=== PATIENT | female | born 1995 | race Two or more races ===

== ENCOUNTER 2021-07-26 22:09 | Emergency (ER) | payer SELFPAY ==
[~2021-07-26] VITALS: Ht 157.5 cm; Wt 56.0 kg
[2021-07-26] MEDS ORDERED: ONDANSETRON ODT 4 MG TAB.RAPDIS. PO ONE (23:45)
[2021-07-26 23:46] LABS: BILIRUBIN,URINE SMALL (NEG); CLARITY,URINE HAZY; COLOR,URINE YELLOW; NITRITE,URINE NEGATIVE (NEG); PH,URINE 5.5 (<5.0-8.0); PROTEIN,URINE 30 mg/dL (NEG-TRACE); UROBILINOGEN,URINE 0.2 mg/dL (0.2 mg/dL)
[2021-07-26 23:47] LABS: BACTERIA,URINE MODERATE /HPF (0-FEW); RBC,URINE OCC /HPF (0-2)
[2021-07-27 00:32] LABS: BASO % 0 % (0-3); EOS % 0 % (0-3); HEMATOCRIT 39.4 % (36.0-47.0); HEMOGLOBIN 13.7 g/dL (12.0-15.5); LYMPH # 0.9 x10^3/uL (1.0-4.8); LYMPH % 11 % (24-48); MEAN CORPUSCULAR HEMOGLOBIN 31 pg (25-35); MEAN CORPUSCULAR HGB CONC 35 g/dL (31-37); MEAN CORPUSCULAR VOLUME 90 fL (79-100); MONO # 0.6 x10^3/uL (0.0-1.1); MONO % 7 % (0-9); NEUT # 7.1 x10^3/uL (1.8-7.7); NEUT % 82 % (31-73); PLATELET COUNT 300 x10^3/uL (140-400); RED BLOOD COUNT 4.37 x10^6/uL (3.50-5.40); RED CELL DISTRIBUTION WIDTH 13.8 % (11.5-14.5); WHITE BLOOD COUNT 8.6 x10^3/uL (4.0-11.0)
[2021-07-27 00:39] LABS: CALCIUM 9.6 mg/dL (8.5-10.1); CREATININE 0.7 mg/dL (0.6-1.0); POTASSIUM 3.8 mmol/L (3.5-5.1)
[2021-07-27 00:46] LABS: ALBUMIN 3.6 g/dL (3.4-5.0); ALBUMIN/GLOBULIN RATIO 0.7 (1.0-1.7); TOTAL BILIRUBIN 0.5 mg/dL (0.2-1.0); TOTAL PROTEIN 8.7 g/dL (6.4-8.2)
[2021-07-27] MEDS ORDERED: ONDANSETRON ODT 4 MG TAB.RAPDIS. PO ONE (01:00)
[2021-07-27] MEDS ORDERED: ONDA4TAB12 PO (01:23)
[2021-07-27 01:25] VITALS: BP 109/68
--- NOTE | 2021-07-27 01:25 | PHYS DOC ---
Past Medical History Past Surgical History: No Surgical History Smoking Status: Never Smoker Alcohol Use: None General Adult EDM: Chief Complaint: NAUSEA/VOMITING/DIARRHEA HPI: HPI: 26 yo at approximately 3 months and 2 weeks based on last menstrual period, presents the ED with her biological mother, (patient consents to his/her/their knowledge and involvement in pts' medical care), complains of multiple episodes of nausea, nonbloody nonbilious vomiting and upper abdominal pain for the past day. Follows at [facility] (Dr. Leigh) and was prescribed doxylamine 1 week ago. Reports normal ultrasound approximately 3 we eks ago. No associated vaginal bleeding, lower abdominal pain or cramping, dysuria, hematuria, flank pain, fever, nausea or vomiting. Patient does not drink alcohol or do any drugs. Patient is Malay-speaking and requests her mother to translate. Review of Systems: Review of Systems: Constitutional: Denies fever or chills. [] Eyes: Denies change in visual acuity. [] HENT: Denies nasal congestion or sore throat. [] Respiratory: Denies cough or shortness of breath. [] Cardiovascular: Denies chest pain or edema. [] GI: Denies bloody stools or diarrhea. [] : Denies dysuria or vaginal bleeding Musculoskeletal: Denies back pain or joint pain. [] Integument: Denies rash or diaphoresis Neurologic: Denies headache, focal weakness or sensory changes. [] Psychiatric: Denies depression or anxiety. [] Heart Score: C/O Chest Pain: No Risk Factors: Risk Factors: DM, Current or recent (<one month) smoker, HTN, HLP, family history of CAD, obesity. Risk Scores: Score 0 - 3: 2.5% MACE over next 6 weeks - Discharge Home Score 4 - 6: 20.3% MACE over next 6 weeks - Admit for Clinical Observation Score 7 - 10: 72.7% MACE over next 6 weeks - Early Invasive Strategies Current Medications: Current Medications Medications (Trade) Dose Ordered Sig/Gonzalez Start Time Stop Time Status Last Admin Dose Admin Ondansetron HCl (Zofran Odt) 4 mg 1X ONCE 07/27/21 01:00 07/27/21 01:01 DC 07/27/21 00:30 4 MG Allergies: Allergies: Allergies Coded Allergies Type Severity Reaction Last Updated Verified No Known Drug Allergies 07/26/21 No Physical Exam: PE: Constitutional: Well developed, well nourished, no acute distress, non-toxic appearance. HENT: Normocephalic, atraumatic, Eyes: EOMI, conjunctiva normal, no discharge. Neck: Normal range of motion, supple, Cardiovascular: S1/2 present, regular rhythm Lungs & Thorax: Speaking in full sentences, bilateral equal chest rise, no tachypnea or increased work of breathing Abdomen: soft, no reproducible tenderness, gravid, heart rate between 166 and 180 per RN Skin: Warm, dry, no erythema, no rash. [] Back: No tenderness, no CVA tenderness. [] Extremities: No tenderness, no cyanosis, no lower extremity edema Neurologic: Alert and oriented X 3, normal motor function, normal sensory function, no focal deficits noted. [] Psychologic: Affect normal, judgement normal, mood normal. [] Current Patient Data: Labs: Laboratory Tests Test 07/26/21 23:05 07/26/21 23:12 07/27/21 00:25 Urine Collection Type Unknown Urine Color Yellow Urine Clarity Hazy Urine pH 5.5 (<5.0-8.0) Urine Specific [place] >=1.030 (1.000-1.030) Urine Protein 30 mg/dL (NEG-TRACE) Urine Glucose (UA) Negative mg/dL (NEG) Urine Ketones (Stick) >160 mg/dL (NEG) Urine Blood Negative (NEG) Urine Nitrite Negative (NEG) Urine Bilirubin Small (NEG) Urine Urobilinogen Dipstick 0.2 mg/dL (0.2 mg/dL) Urine Leukocyte Esterase Negative (NEG) Urine RBC Occ /HPF (0-2) Urine WBC 1-4 /HPF (0-4) Urine Squamous Epithelial Cells Many /LPF Urine Bacteria Moderate /HPF (0-FEW) Urine Mucus Marked /LPF POC Urine HCG, Qualitative Hcg positive (Negative) White Blood Count 8.6 x10^3/uL (4.0-11.0) Red Blood Count 4.37 x10^6/uL (3.50-5.40) Hemoglobin 13.7 g/dL (12.0-15.5) Hematocrit 39.4 % (36.0-47.0) Mean Corpuscular Volume 90 fL (79-100) Mean Corpuscular Hemoglobin 31 pg (25-35) Mean Corpuscular Hemoglobin Concent 35 g/dL (31-37) Red Cell Distribution Width 13.8 % (11.5-14.5) Platelet Count 300 x10^3/uL (140-400) Neutrophils (%) (Auto) 82 % (31-73) H Lymphocytes (%) (Auto) 11 % (24-48) L Monocytes (%) (Auto) 7 % (0-9) Eosinophils (%) (Auto) 0 % (0-3) Basophils (%) (Auto) 0 % (0-3) Neutrophils # (Auto) 7.1 x10^3/uL (1.8-7.7) Lymphocytes # (Auto) 0.9 x10^3/uL (1.0-4.8) L Monocytes # (Auto) 0.6 x10^3/uL (0.0-1.1) Eosinophils # (Auto) 0.0 x10^3/uL (0.0-0.7) Basophils # (Auto) 0.0 x10^3/uL (0.0-0.2) Maternal Serum HCG Beta Subunit 24135 mIU/mL (0-5) H Sodium Level 137 mmol/L (136-145) Potassium Level 3.8 mmol/L (3.5-5.1) Chloride Level 100 mmol/L (98-107) Carbon Dioxide Level 24 mmol/L (21-32) Anion Gap 13 (6-14) Blood Urea Nitrogen 6 mg/dL (7-20) L Creatinine 0.7 mg/dL (0.6-1.0) Estimated GFR (Cockcroft-Gault) 102.0 BUN/Creatinine Ratio 9 (6-20) Glucose Level 87 mg/dL (70-99) Calcium Level 9.6 mg/dL (8.5-10.1) Total Bilirubin 0.5 mg/dL (0.2-1.0) Aspartate Amino Transferase (AST) 17 U/L (15-37) Alanine Aminotransferase (ALT) 29 U/L (14-59) Alkaline Phosphatase 77 U/L (46-116) Total Protein 8.7 g/dL (6.4-8.2) H Albumin 3.6 g/dL (3.4-5.0) Albumin/Globulin Ratio 0.7 (1.0-1.7) L Laboratory Tests 07/27/21 00:25 Laboratory Tests 07/27/21 00:25 Vital Signs: Vital Signs Date Time Temp Pulse Resp B/P (MAP) Pulse Ox O2 Delivery O2 Flow Rate FiO2 07/27/21 00:55 80 105/65 (78) 98 Room Air 07/26/21 23:11 98.1 20 98.1 EKG: EKG: [] Radiology/Procedures: Radiology/Procedures: [] Course & Med Decision Making: Course & Med Decision Making Pertinent Labs and Imaging studies reviewed. (See chart for details) Concern for nausea and vomiting in , no reproducible abdominal pain on exam. Patient denies diarrhea, fever, chills, vaginal bleeding or urinary complaints. Patient tolerating oral fluids on reevaluation after antiemetics. Urinalysis contaminated w/ketonuria (negative for nitrates and leukocyte esterase). Labs unremarkable with no electrolyte abnormalities. Patient hemodynamically stable and well-appearing. No further abdominal pain on re- evaluation (later clarified it's only present when vomiting). Will prescribe Zofran ODT. Will discharge home with strict ED return precautions were given for abdominal pain, intractable nausea vomiting or fever. Encouraged urgent outpatient follow-up with PMD for reevaluation, consider CONSTRUCTION SUPERVISOR/CARPENTER evaluation. Life-threatening processes were considered but are low suspicion at this time, given history, physical exam and ED workup. Pt was educated on all prescription medications and adverse effects. All patient's questions were answered and pt was stable at time of discharge. Life/limb-threatening differential includes but is not limited to, hyperemesis gravidarum, ectopic , appendicitis, pancreatitis, pyelonephritis, help slightly, thyrotoxicosis, molar or gestational trophoblastic disease, pyelonephritis, hepatitis, biliary disease electrolyte abnormality or acute fatty liver of . I have spoken with the patient and/or caregivers. I explained the patient's condition, diagnoses and treatment plan based on the information available to me at this time. I have answered the patient and/or caregiver's questions and addressed any concerns. The patient and/or caregivers have a good understanding of patient's diagnosis, condition and treatment plan as can be expected at this point. Vital signs have been stable. Patient's condition is stable and appropriate for discharge from the emergency department. Patient will pursue further outpatient evaluation with primary care physician or other designated or consulting physician as outlined in the discharge instructions. The patient and/or caregivers are agreeable to this plan of care and follow-up instructions have been explained in detail. The patient and/or caregivers have received these instructions in written form and have expressed an understanding of the discharge instructions. The patient and/or caregivers are aware that any significant change of condition or worsening of symptoms should prompt immediate return to this or the closest emergency department or call to 911. Zach Disclaimer: Dragbry Disclaimer: This electronic medical record was generated, in whole or in part, using a voice recognition dictation system. Departure Departure Impression: Primary Impression: Vomiting during Additional Impression: Ketonuria Disposition: HOME / SELF CARE / HOMELESS Condition: STABLE Referrals: UNKNOWN PCP NAME (PCP) Seguimiento con valiente mdico de atencin primaria en 24 a 48 horas O SEGUIMIENTO CON MEDICINA FAMILIAR: [address] [facility], [facility] [address] [place] [address] Telfono: Patient Instructions: Diet - Hyperemesis Gravidarum, Hyperemesis Gravidarum Additional Instructions: SEGUIMIENTO CON CONSTRUCTION SUPERVISOR/CARPENTER: PARA EL MANEJO DEFINITIVO de los vmitos en el embarazo [facility] [address] [facility], [facility] [address] [place] [address] Telfono: INSTRUCCIONES GENERALES DE CAIO DEL DEPARTAMENTO DE EMERGENCIA Ervin por venir al Departamento de Emergencias (ED) de [facility] steve y confiando en nosotros con valiente cuidado. Confiamos en que tuviste andrea experiencia positiva en nuestra Emergencia Departamento. Si desea hablar con la gerencia del departamento, puede llamar al Director al [phone]. JASMINA INSTRUCCIONES DE SEGUIMIENTO SON LAS SIGUIENTES: 1. Tiene un mdico privado? Si no tiene un mdico privado, por favor pida merissa lista de recursos de mdicos o clnicas que pueden ayudarlo con la atencin de seguimiento. 2. El Mdico de Urgencias collier interpretado jasmina radiografas. El especialista en jack X tambin revisarlos. Si hay un cambio en los hallazgos, se le notificar en 48 horas cuando al todo posible. 3. Se collier realizado andrea prueba de laboratorio o cultivo, se revisarn jasmina resultados y se le notificado si necesita un cambio en el tratamiento. INSTRUCCIONES E INFORMACIN ADICIONALES: 1. Valiente atencin hoy collier sido supervisada por un mdico especialmente capacitado en emergencias cuidado. Muchos problemas requieren ms de andrea evaluacin para un diagnstico completo y tratamiento. Le recomendamos que programe valiente anna de seguimiento segn lo recomendado para garantizar el tratamiento completo de valiente enfermedad o lesin. Si no puede obtener un seguimiento atencin y contina teniendo un problema, o si valiente condicin empeora, le recomendamos que volver al servicio de urgencias. 2. No podemos determinar valiente condicin de forma gee por telfono ni podemos benitez buenos consejos mdicos por telfono. Por estas razones de seguridad, si llama para recibir atencin mdica consejo, le pediremos que venga al servicio de urgencias para andrea evaluacin adicional. 3. Si tiene alguna pregunta con respecto a estas instrucciones de caio, llame al ED al [phone]. INFORMACIN DE SEGURIDAD: En inters de la seguridad, el bienestar y la prevencin de lesiones; te animamos a que lleves tu cinturn de seguridad, si fuma; fumando bastante, y alentamos a la elizabeth a usar un maia protector para andar en bicicleta y otros eventos deportivos que presentan un mayor riesgo de lesiones en la allie. SI JASMINA SNTOMAS EMPEORAN O SE DESARROLLAN NUEVOS SNTOMAS, O SI TIENE PREOCUPACIONES SOBRE VALIENTE CONDICIN; O SI VALIENTE CONDICIN EMPEORA MIENTRAS ESPERA VALIENTE ANNA DE SEGUIMIENTO; CUALQUIERA COMUNQUESE CON VALIENTE MDICO DE ATENCIN PRIMARIA, EL MDICO CUYO NOMBRE Y NMERO LE DIERON, O REGRESE AL ED INMEDIATAMENTE. Scripts Ondansetron (ONDANSETRON ODT) 4 Mg Tab.rapdis 1 TAB PO PRN Q6-8HRS, #20 TAB Prov: LEXI LUNA DO 07/27/21 LEXI LUNA DO Jul 27, 2021 01:25
== END 2021-07-27 01:30 | disposition home or self-care (01) ==
LOC: ER 22:09
DX: O21.9 Vomiting of pregnancy, unspecified (principal); R10.10 Upper abdominal pain, unspecified; Z3A.00 Weeks of gestation of pregnancy not specified
CPT/HCPCS: 36415; 80053; 81001; 81025; 84702; 85025; 87086; 99283